=== PATIENT | male | born 1990 | race Caucasian/White ===

== ENCOUNTER 2016-12-12 08:18 | Emergency (ER) | payer SELFPAY ==
[~2016-12-12] VITALS: Ht 170.2 cm; Wt 75.0 kg
[2016-12-12] MEDS ORDERED: LEVETIRACETAM 1,000 MG in SODIUM CHLORIDE 0.9% 100 ML IV ONE (09:30)
[2016-12-12 09:46] LABS: CLARITY URINE CLEAR (CLEAR); COLOR URINE YELLOW (YELLOW); GLUCOSE URINE NEGATIVE (NEGATIVE); KETONES URINE NEGATIVE (NEGATIVE); LEUKOCYTE ESTERASE URINE NEGATIVE (NEGATIVE); NITRITE URINE NEGATIVE (NEGATIVE); OCCULT BLOOD URINE NEGATIVE (NEGATIVE); PROTEIN URINE NEGATIVE (NEGATIVE); SPECIFIC GRAVITY URINE 1.023 (1.005-1.030); UROBILINOGEN URINE 0.2 E.U./dL (0.2-1.0)
[2016-12-12 10:06] LABS: BASOPHILS % 0.5 % (0.0-2.0); EOSINOPHILS % 0.1 % (0.0-5.0); HEMATOCRIT. 46.7 % (42.0-52.0); HEMOGLOBIN. 16.1 g/dL (14.0-18.0); LYMPHOCYTES % 7.6 % (20.0-50.0); MEAN CORPUSCULAR HEMOGLOBIN 29.4 pg (28.0-32.0); MEAN CORPUSCULAR VOLUME 85.3 fL (80.0-94.0); MONOCYTES % 6.1 % (2.0-8.0); NEUTROPHILS % 85.7 % (40.0-76.0); PLATELET 227 x1000/uL (130-400); RED BLOOD CELL COUNT 5.47 mill/uL (4.7-6.1); RED CELL DISTRIBUTION WIDTH 12.8 % (11.6-14.6)
[2016-12-12 10:11] LABS: CHLORIDE 107 mEq/L (98-107)
[2016-12-12 10:11] LABS: *AMPHETAMINES SCREEN URINE NEGATIVE (NEGATIVE); *BARBITURATES SCREEN URINE NEGATIVE (NEGATIVE); *BENZODIAZEPINES SCREEN URINE NEGATIVE (NEGATIVE); *COCAINE SCREEN URINE NEGATIVE (NEGATIVE); CANNABINOID URINE SCREEN NEGATIVE (NEGATIVE); METHADONE URINE SCREEN NEGATIVE (NEGATIVE); OPIATES URINE SCREEN NEGATIVE (NEGATIVE); PHENCYCLIDINE URINE SCREEN NEGATIVE (NEGATIVE)
[2016-12-12 10:17] LABS: CARBON DIOXIDE 25 mEq/L (21-32); ETHANOL BLOOD < 10 mg/dL
[2016-12-12 13:50] VITALS: BP 106/58
== END 2016-12-12 14:03 | disposition home or self-care (01) ==
LOC: ER 08:25
DX: G40.909 Epilepsy, unspecified, not intractable, without status epilepticus (principal)
CPT/HCPCS: 36415; 70450; 80053; 80305; 81003; 82962; 85025; 96365; 99285; G0482; J1953; Z7610; J7050

== ENCOUNTER 2017-01-01 08:27 | Emergency (ER) | payer SELFPAY ==
[~2017-01-01] VITALS: Ht 170.2 cm; Wt 82.0 kg
[2017-01-01] MEDS ORDERED: LEVE500T19 PO (08:50)
[2017-01-01] MEDS ORDERED: PHENYTOIN SODIUM 1,000 MG in SODIUM CHLORIDE 0.9% 100 ML IV ONE (09:15)
[2017-01-01 11:29] VITALS: BP 121/77
== END 2017-01-01 12:11 | disposition home or self-care (01) ==
LOC: ER 09:12
DX: G40.909 Epilepsy, unspecified, not intractable, without status epilepticus (principal); R45.851 Suicidal ideations
CPT/HCPCS: 96365; 99284; J1165; J7050

== ENCOUNTER 2020-09-06 10:51 | Emergency (ER) | payer SELFPAY ==
[~2020-09-06] VITALS: Ht 170.2 cm; Wt 82.0 kg
[~2020-09-06 10:51] MED LIST: LEVE500T19 PO
[2020-09-06] MEDS ORDERED: LAMO25TA71 PO (11:00)
[2020-09-06] MEDS ORDERED: LEVETIRACETAM 1000MG PREMIX 100 ML IV ONE (11:30)
[2020-09-06 11:34] LABS: BASOPHILS % 0.6 % (0.0-2.0); HEMATOCRIT. 45.8 % (42.0-52.0); HEMOGLOBIN. 15.7 g/dL (14.0-18.0); LYMPHOCYTES % 31.8 % (20.0-50.0); MEAN CORPUSCULAR HEMOGLOBIN 29.6 pg (28.0-32.0); MEAN CORPUSCULAR VOLUME 86.7 fL (80.0-94.0); MEAN PLATELET VOLUME 7.8 fl (7.4-10.4); MONOCYTES % 9.5 % (2.0-8.0); NEUTROPHILS % 57.1 % (40.0-76.0); PLATELET 301 x1000/uL (130-400); RED BLOOD CELL COUNT 5.28 mill/uL (4.7-6.1); RED CELL DISTRIBUTION WIDTH 13.6 % (11.6-14.6)
[2020-09-06 11:42] LABS: CHLORIDE 106 mEq/L (98-107)
[2020-09-06] MEDS ORDERED: LORAZEPAM 0.5MG TABLET PO ONE (12:45)
[2020-09-06 14:09] VITALS: BP 100/62
== END 2020-09-06 14:11 | disposition home or self-care (01) ==
LOC: ER 11:02
DX: G40.909 Epilepsy, unspecified, not intractable, without status epilepticus (principal)
CPT/HCPCS: 36415; 80053; 85025; 93005; 99284

== ENCOUNTER 2021-02-01 10:36 | Emergency (ER) | payer SELFPAY ==
[~2021-02-01] VITALS: Ht 177.8 cm; Wt 80.0 kg
[~2021-02-01 10:36] MED LIST changes: +LAMO25TA71 PO
[2021-02-01] MEDS ORDERED: KETOROLAC 30MG/ML VIAL IV STA (10:55)
[2021-02-01] MEDS ORDERED: SODIUM CHLORIDE 0.9% 1,000 ML IV ONE (11:00)
[2021-02-01] MEDS ORDERED: LEVETIRACETAM 500MG PREMIX 100 ML IV ONE (11:00)
[2021-02-01 11:15] LABS: BASOPHILS % 0.7 % (0.0-2.0); EOSINOPHILS % 1.1 % (0.0-5.0); HEMATOCRIT. 44.9 % (42.0-52.0); HEMOGLOBIN. 15.3 g/dL (14.0-18.0); LYMPHOCYTES % 31.6 % (20.0-50.0); MEAN CORPUSCULAR HEMOGLOBIN 29.8 pg (28.0-32.0); MEAN CORPUSCULAR VOLUME 87.5 fL (80.0-94.0); MEAN PLATELET VOLUME 7.7 fl (7.4-10.4); MONOCYTES % 7.3 % (2.0-8.0); NEUTROPHILS % 59.3 % (40.0-76.0); PLATELET 272 x1000/uL (130-400); RED BLOOD CELL COUNT 5.13 mill/uL (4.7-6.1)
[2021-02-01 11:24] LABS: CHLORIDE 105 mEq/L (98-107)
[2021-02-01 14:23] VITALS: BP 96/66
== END 2021-02-01 14:25 | disposition home or self-care (01) ==
LOC: ER 10:44
DX: R56.9 Unspecified convulsions (principal)
CPT/HCPCS: 36415; 80053; 85025; 93005; 96365; 96375; 99284; J1885; J1953; J7030; Z7610